=== PATIENT | female | born 1970 | race Caucasian/White ===

== ENCOUNTER 2022-02-19 14:04 | Emergency (ER) | payer OTHER, MEDICARE, MEDICAID, SELFPAY ==
[2022-02-19 14:11] VITALS: BP 181/84; PULSE 88; RESP 18; TEMP 36.7; O2SAT 98; BMI 21.9
--- NOTE | 2022-02-19 14:25 | CRLHL7_ITS ---
For Patients: As a result of the Century Cures Act, medical imaging exams and procedure reports are released immediately into your electronic medical record. You may view this report before your referring provider. If you have questions, please contact your health care provider. INDICATION: Pain COMPARISON: None TECHNIQUE: CT examination of the cervical spine is performed without contrast using spiral technique. Thin axial, sagittal and coronal reconstructions were made. Please note that all CT scans at this facility use dose modulation, iterative reconstruction, and/or weight-based dosing when appropriate to reduce radiation dose to as low as reasonably achievable. FINDINGS: : Bone mineral density appears normal by CT. There is straightening which is due to due to muscle spasm, positioning or immobilization device. There is no samina malalignment The height of the vertebral bodies and the caliber of the intervertebral disc space is normal. No significant osteoarthritic changes involving the facet joints or the uncovertebral joints. Suboptimal for evaluation of disc disease but there is no visible high-grade disc disease by CT. If spondylotic changes such as disc disease or spinal cord abnormality is the clinical concern, consider MRI. IMPRESSION: Straightening which is usually due to muscle spasm, positioning or immobilization device. The osseous structures appear normal. Normal caliber of the intervertebral disc spaces. Please review the comment. Please note that all CT scans at this facility use dose modulation, iterative reconstruction, and/or weight-based dosing when appropriate to reduce radiation dose to as low as reasonably achievable. Dictated by Smith Bowser MD @ 02/19/2022 3:43:49 PM (Electronically Signed)
--- NOTE | 2022-02-19 14:26 | CRLHL7_ITS ---
For Patients: As a result of the Century Cures Act, medical imaging exams and procedure reports are released immediately into your electronic medical record. You may view this report before your referring provider. If you have questions, please contact your health care provider. INDICATION: Injury COMPARISON: None TECHNIQUE: : CT examination of the chest was performed without contrast. Thin axial sections were obtained from above the apices of the lungs to the lung bases. Please note that all CT scans at this facility use dose modulation, iterative reconstruction, and/or weight-based dosing when appropriate to reduce radiation dose to as low as reasonably achievable. FINDINGS: : HEART and MEDIASTINUM: The heart size is normal. There is no mediastinal or hilar adenopathy or mass. There is no pericardial effusion. LUNGS: The lungs show no focal consolidation or mass. The airways appear normal. Linear opacities at the lung bases are likely related to atelectasis or scarring. PLEURAL SPACES: There is no pleural effusion, pneumothorax or pleural based mass. VISUALIZED UPPER ABDOMEN: The limited visualized upper abdominal structures appear normal. Atherosclerotic vascular calcifications OSSEOUS STRUCTURES: No spinal or rib fracture identified. Probable subtle nondisplaced fracture of the inferolateral right scapular blade. This is best seen on axial series 5, images 18 through 21. TUBES and LINES: None. IMPRESSION: 1. Probable subtle nondisplaced fracture of the inferolateral aspect of the right scapular blade. No additional osseous injury 2. Aside from basilar atelectasis or scarring, the lungs and pleural space appear normal. Please note that all CT scans at this facility use dose modulation, iterative reconstruction, and/or weight-based dosing when appropriate to reduce radiation dose to as low as reasonably achievable. Dictated by Smith Bowser MD @ 02/19/2022 3:53:13 PM (Electronically Signed)
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
== END 2022-02-19 16:24 | disposition home or self-care (01) ==
PROVIDERS: Emergency Provider Internal Medicine; PCP Physician Assistant Medical
DX: S42.101A Fracture of unspecified part of scapula, right shoulder, initial encounter for closed fracture (principal); V43.52XA Car driver injured in collision with other type car in traffic accident, initial encounter
CPT/HCPCS: 71250; 72125; 99283

== ENCOUNTER 2022-03-20 10:23 | Outpatient (RCR) | payer OTHER, MEDICARE, MEDICAID, SELFPAY | END 2022-05-29 14:41 | disposition home or self-care (01) | PROVIDERS: PCP Physician Assistant Medical; Visit Provider Physician Assistant Medical | DX: M54.6 Pain in thoracic spine (principal); M62.838 Other muscle spasm; S62.014D Nondisplaced fracture of distal pole of navicular [scaphoid] bone of right wrist, subsequent encounter for fracture with routine healing; F33.2 Major depressive disorder, recurrent severe without psychotic features; Z51.89 Encounter for other specified aftercare | CPT/HCPCS: 97110; 97161 ==

== ENCOUNTER 2023-04-13 13:45 | Outpatient (RCR) | payer OTHER, MEDICARE, SELFPAY | END 2023-05-06 11:23 | disposition home or self-care (01) | PROVIDERS: PCP Physician Assistant Medical; Visit Provider Family Medicine | DX: M75.01 Adhesive capsulitis of right shoulder (principal); S46.911S Strain of unspecified muscle, fascia and tendon at shoulder and upper arm level, right arm, sequela; M25.511 Pain in right shoulder; Z51.89 Encounter for other specified aftercare | CPT/HCPCS: 97110; 97140; 97161 ==